=== PATIENT | female | born 1990 | race Caucasian/White ===

== ENCOUNTER 2022-06-14 07:31 | Outpatient (REF) | payer OTHER, SELFPAY ==
[2022-06-14 11:35] LABS: Hematocrit 38.5 % (37.0-47.0); Hemoglobin 13.1 g/dl (12.0-16.0); Mean Corpuscular Hemoglobin 29.8 pg (27.0-33.0); Mean Corpuscular Volume 87.5 fL (80.0-98.0); Mean Platelet Volume 10.7 fL (9.4-12.3); Platelet Count 256 X10*3/uL (160-400); Red Cell Distribution Width 12.8 % (11.0-16.0); White Blood Count 4.4 X10*3/uL (4.8-10.8)
[2022-06-14 12:24] LABS: TSH reflex Free T4 1.71 uIU/mL (0.32-4.0)
[2022-06-14 12:28] LABS: Alanine Aminotransferase 17 U/L (0-31); Albumin Level 4.3 g/dL (3.5-5.0); Alkaline Phosphatase 47 U/L (39-117); Anion Gap 14 (12-20); Aspartate Amino Transferase 15 U/L (5-31); Bilirubin Total 0.5 mg/dL (0.0-1.0); Blood Urea Nitrogen 14 mg/dL (9-16); Calcium 9.1 mg/dL (8.4-10.2); Carbon Dioxide 25 mmol/L (22-29); Chloride 106 mmol/L (96-108); Cholesterol 179 mg/dL; Estimated Glomerular Filt Rate > 60; Glucose Fasting 94 mg/dL (60-99); HDL Cholesterol 59 mg/dL; LDL Cholesterol Calculated 106 mg/dl; Potassium 4.2 mmol/L (3.3-5.1); Sodium 141 mmol/L (135-145); Total Protein 6.7 g/dL (6.5-8.0); Triglycerides 72 mg/dL
== END 2022-06-14 07:32 | disposition home or self-care (01) ==
LOC: HO.WFDLDS 07:31
PROVIDERS: Visit Provider Hospitalist
DX: Z00.00 Encounter for general adult medical examination without abnormal findings (principal)
CPT/HCPCS: 36415; 80053; 80061; 84443; 85027

== ENCOUNTER → 2023-02-10 08:33 | Outpatient (BNVA) | payer OTHER, SELFPAY | PROVIDERS: PCP Hospitalist; Visit Provider Nurse Practitioner Family | DX: G43.109 Migraine with aura, not intractable, without status migrainosus (principal); R51.9 Headache, unspecified | CPT/HCPCS: 99202 ==

== ENCOUNTER 2023-03-21 08:48 | Outpatient (REF) | payer OTHER, SELFPAY ==
--- NOTE | ~2023-03-21 | MR_ITS ---
EXAMINATION: MR BRAIN WITHOUT CONTRAST CLINICAL INFORMATION: Migraine. COMPARISON: None available. TECHNIQUE: MRI of the brain was obtained using routine sequences without contrast. FINDINGS: No focal restricted diffusion is demonstrated to suggest acute or subacute cerebral ischemia. No evidence of acute or chronic hemorrhagic products on heme-sensitive imaging. Few nonspecific scattered periventricular and deep white matter T2 FLAIR hyperintensities. No additional parenchymal signal abnormalities. The ventricles are normal in morphology and size. No abnormal mass effect. No midline shift. Normal appearance of the pituitary gland. Normal positioning of the cerebellar tonsils. Normal arterial and venous vascular flow voids are present. Normal, homogeneous marrow signal. Mild mucosal thickening of the paranasal sinuses. No signal abnormalities within the mastoids. MR/MR head/brain wo con IMPRESSION: 1. No acute intracranial abnormalities. 2. Minimal nonspecific white matter changes.
== END 2023-03-21 08:49 | disposition home or self-care (01) ==
LOC: HO.MRI 08:48
PROVIDERS: PCP Hospitalist; Visit Provider Nurse Practitioner Family
DX: G43.109 Migraine with aura, not intractable, without status migrainosus (principal)
CPT/HCPCS: 70551

== ENCOUNTER 2023-08-19 13:08 | Outpatient (AMB) | payer OTHER, SELFPAY ==
--- NOTE | 2023-08-19 13:09 | MHC.OFFVIS ---
Intake Vital Signs 08/19/23 13:10 Height 5 ft 8 in Weight 211 lb BMI 32.1 BP 126/74 Blood Pressure Location Rt brachial Position Sitting Pulse 86 Pulse Source Pulse Oximeter Pulse Oximetry (%) 97 Oxygen Delivery Method Room Air Intake Visit Reasons: 3 month follow up -confirmed Intake Note: Patient presents for 3 month follow up. Patient states this is actually a 6 month migraine follow up last migraine I had was May. Allergies grass pollen Allergy (Unknown, Verified 08/19/23 13:13) Unknown sumatriptan Adverse Reaction (Mild, Verified 08/19/23 13:13) Unknown mold Allergy (Unknown, Uncoded 08/19/23 13:13) Unknown HPI HPI Comments History of Present Illness Details 33-yr-old female presents for f/u visit. Pt denies any significant interval medical changes. Pt reports she has had 2 severe migraines since February, which last 2 days. She was more photophobic. She has had 2-3 lower grade migraines per week- may respond to fluids, Ibuprofen. One of the attacks, she had increased stress and was exposed to neon light. She did take a Ubrelvy- afterwards she felt a high energy/manic feeling- this was atypical for her. The following day, she still had headache, and was quite tired- slept for most of the day. The other attack she was exposed to a high light exposure. She did have eye pain and visual aura, and thumb to pinky numbness. She did not take the Ubrelvy on her at onset, so did not take it until later in the attack. She did not have positive or negative change after taking the Ubrelvy. Brain MRI- No acute findings. Mild non-specific T2 hyperintensity white matter changes. PFSH Family History Father Hypertension Mother Breast cancer Social History Housing: House Alcohol intake: current Alcohol intake frequency: a few times a week Patient Tobacco Use Status: Never used Tobacco Tobacco use type: Cigarette e-Cigarette/Vaping Use: Never Used Second Hand Smoke Exposure: No service: No Current occupational status: employed Review of Systems Const All systems reviewed & are unremarkable except as noted in HPI and below Physical Exam Vital Signs: Last Vital Signs Pulse 86 08/19/23 13:10 BP 126/74 08/19/23 13:10 Pulse Ox 97 08/19/23 13:10 Oxygen Delivery Method Room Air 08/19/23 13:10 BMI result Body Mass Index 32.1 Const General: cooperative and no acute distress Orientation/consciousness: patient oriented x3 HEENT Head: Yes normocephalic Resp Effort & Inspection: normal respiratory effort and able to speak in complete sentences Neuro General: patient oriented x3, gait normal and CN's II-XI intact bilaterally Cognition (Neuro): normal cognition Motor exam (neuro): 5/5 motor strength present throughout Psych Appearance: grossly normal Mental Status: mental status grossly normal Speech and movement: Normal speech and movement present Affect: normal affect Attitude: cooperative Thought process: Normal thought process present Thought content: Normal thought content present Insight: Good insight present (Psych) Judgement: Good judgement present (Psych) Assessment & Plan Assessment & Plan (1) Migraine with aura: Code(s): G43.109 - Migraine with aura, not intractable, without status migrainosus (2) Migraine without aura: Code(s): G43.009 - Migraine without aura, not intractable, without status migrainosus Plan Reviewed brain MRI report and images w/ pt- no findings to account for pt's s/s, 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 ? For overall headache management: Continue to optimize good self-care, including but not limited to maintaining a healthy diet, adequate fluid intake, adequate sleep, and engaging in regular physical activity. Track headaches. Continue light sensitivity tips: blue light filtering glasses. ? For acute migraine treatment: Continue Ubrelvy 100mg tab, 1/2 - 1 tab (50-100mg) at onset of headache, may repeat in 2 hours. Max of 2 tabs (200mg) per 24 hours. May adjunct with OTC Tylenol 650mg q 4 hours, Ibuprofen 600mg q 6 hours, or Naproxen 440mg q 12 hrs prn. Previous acute migraine medication trials: Sumatriptan- caused severe vasospasm. Fioricet ineffective. Acute migraine medication contraindications: All triptans. ? For migraine prevention medication: Continue OTC Riboflavin 400mg qam Continue OTC Magnesium up to 500mg qhs Continue OTC Feverfew Previous migraine prevention medication trials: None Migraine prevention medication contraindications: BBs d/t asthma ? f/u in 6 months or sooner prn. Coding Level of Care Code Est Pt Level 4 (72768) Diagnoses Migraine with aura G43.109 Migraine without aura G43.009
[2023-08-19 13:10] VITALS: BP 126/74; PULSE 86; O2SAT 97; BMI 32.1
== END 2023-08-19 13:54 | disposition home or self-care (01) ==
LOC: HO.HSMS 13:08
PROVIDERS: PCP Hospitalist; Visit Provider Nurse Practitioner Family
DX: G43.109 Migraine with aura, not intractable, without status migrainosus (principal); G43.009 Migraine without aura, not intractable, without status migrainosus
CPT/HCPCS: 99214

== ENCOUNTER → 2023-08-19 13:08 | Outpatient (BNVA) | payer OTHER, SELFPAY | PROVIDERS: PCP Hospitalist; Visit Provider Nurse Practitioner Family | DX: G43.109 Migraine with aura, not intractable, without status migrainosus (principal); G43.009 Migraine without aura, not intractable, without status migrainosus | CPT/HCPCS: 99212 ==

== ENCOUNTER 2024-02-17 09:38 | Outpatient (AMB) | payer OTHER, SELFPAY ==
--- NOTE | 2024-02-17 09:43 | MHC.OFFVIS ---
Vital Signs 02/17/24 09:48 Height 5 ft 8 in Weight 208 lb 6 oz BMI 31.7 BP 124/72 Blood Pressure Location Lt brachial Position Sitting Pulse 80 Pulse Source Pulse Oximeter Pulse Oximetry (%) 97 Oxygen Delivery Method Room Air Intake Visit Reasons: 6 mnts f/u appt/ LVM w/address Intake Note: Patient presents for 6 months f/u. Migraines are much better. Get them less frequently. Allergies grass pollen Allergy (Unknown, Verified 02/17/24 09:48) Unknown sumatriptan Adverse Reaction (Mild, Verified 02/17/24 09:48) Unknown mold Allergy (Unknown, Uncoded 08/19/23 13:13) Unknown Medication List - Last Reconciled 02/17/24 by MANOJ Randolph cyclobenzaprine 10 mg PO TID PRN electrolytes, oral PO feverfew 1,500 mg PO DAILY glucosamine sulfate (Glucosamine) PO magnesium citrate 330 mg PO DAILY meloxicam 15 mg PO DAILY multivitamin 1 tab PO DAILY ondansetron HCl 8 mg PO Q8H PRN [tumeric and allyson 550 mg PO DAILY] ubrogepant (Ubrelvy) 50 - 100 mg (0.5 - 1 x 100 mg) PO ONCE PRN 30 days HPI Comments Details: 33-yr-old female presents for f/u visit. Pt denies any significant interval medical changes. Pt reports she has not had a severe migraine since her last visit here. She has had the onset of migraine, which has resolved with her as needed med, though still has a postdrome of a day of fatigue. Needing to use this approx 1-2 month. Her migraine now starts with blurry vision, photophobia, thirst. She may still feel tired. Has not had visual aura or agitation a/w her migraine attacks. May have a milder stabbing upper left eye headache a/w photophobia, pain on eye movement, anorexia, wants to be still. This lasts until she takes something. Ubrelvy is helpful for this as well. She has a few of these headaches per month. Now taking an electrolyte drink that contains Magnesium qhs- Noom. No longer seeing eye twitch. She uses a Magnesium salve on her feet. She has stopped the feverfew. Rarely using Cyclobenzaprine. Baseline migraine headache characteristics: 05/22, Behind her eyes and top of head. Dull constant pain. A/w eye twitch, photophobia, phonophobia, irritability f/b losing central and peripheral vision (this lasts 15-30min), fatigue, brain fog- difficulty getting the word out. Has once had RUE numbness/tingling. Has had speech difficulties- the words did not make sense, jibberish- notes she is unable to write or type during this episode. PFSH Family History Father Hypertension Mother Breast cancer Social History Housing: House Alcohol intake: current Alcohol intake frequency: a few times a week Patient Tobacco Use Status: Never used Tobacco Tobacco use type: Cigarette e-Cigarette/Vaping Use: Never Used Second Hand Smoke Exposure: No service: No Current occupational status: employed Physical Exam Vital Signs: Last Vital Signs Pulse 80 02/17/24 09:48 BP 124/72 02/17/24 09:48 Pulse Ox 97 02/17/24 09:48 Oxygen Delivery Method Room Air 02/17/24 09:48 BMI result Body Mass Index 31.7 Const General: cooperative and no acute distress Orientation/consciousness: patient oriented x3 Resp Effort & Inspection: normal respiratory effort and able to speak in complete sentences Neuro General: patient oriented x3 Cranial nerves: Yes CN's II-XII intact bilaterally Cognition (Neuro): normal cognition Psych Appearance: grossly normal Mental Status: mental status grossly normal Speech and movement: Normal speech and movement present Affect: normal affect Attitude: cooperative Assessment & Plan Assessment & Plan (1) Migraine without aura: Code(s): G43.009 - Migraine without aura, not intractable, without status migrainosus Category: Medical (2) Migraine with aura: Code(s): G43.109 - Migraine with aura, not intractable, without status migrainosus Category: Medical Plan Monitor eye twitch. Improved on Noom electrolyte supplement. ? For overall headache management: Continue to optimize good self-care, including but not limited to maintaining a healthy diet, adequate fluid intake, adequate sleep, and engaging in regular physical activity. Track headaches. Continue light sensitivity tips: blue light filtering glasses. ? For acute migraine treatment: Continue Ubrelvy 100mg tab, 1/2 - 1 tab (50-100mg) at onset of headache, may repeat in 2 hours. Max of 2 tabs (200mg) per 24 hours. May adjunct with OTC Tylenol 650mg q 4 hours, Ibuprofen 600mg q 6 hours, or Naproxen 440mg q 12 hrs prn. Cyclobenzaprine prn. Previous acute migraine medication trials: Sumatriptan- caused severe vasospasm. Fioricet ineffective. Acute migraine medication contraindications: All triptans. ? For migraine prevention medication: OTC Riboflavin 400mg qam OTC Magnesium up to 500mg qhs May hold OTC Feverfew Previous migraine prevention medication trials: None Migraine prevention medication contraindications: BBs d/t asthma ? f/u in 6 months or sooner prn. Medications: Discontinued diazepam (Valium) Discontinued Reason: Patient Completed Course 5 mg PO BEDTIME 5 tabs 0RF sleep R51.9 - Headache, unspecified Coding Level of Care Code Est Pt Level 4 (71861) Diagnoses Migraine without aura G43.009 Migraine with aura G43.109
[2024-02-17 09:48] VITALS: BP 124/72; PULSE 80; O2SAT 97; BMI 31.7
== END 2024-02-17 10:32 | disposition home or self-care (01) ==
PROVIDERS: PCP Hospitalist; Visit Provider Nurse Practitioner Family
DX: G43.009 Migraine without aura, not intractable, without status migrainosus (principal); G43.109 Migraine with aura, not intractable, without status migrainosus
CPT/HCPCS: 99214

== ENCOUNTER → 2024-02-17 09:38 | Outpatient (BNVA) | payer OTHER, SELFPAY | PROVIDERS: PCP Hospitalist; Visit Provider Nurse Practitioner Family | DX: G43.109 Migraine with aura, not intractable, without status migrainosus (principal) | CPT/HCPCS: 99212 ==

== ENCOUNTER 2024-09-02 09:31 | Outpatient (AMB) | payer OTHER, SELFPAY ==
[2024-09-02 09:36] VITALS: BP 112/74; PULSE 82; O2SAT 98; BMI 31.8
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
[2024-09-02 11:48] VITALS: BMI 31.8
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
== END 2024-09-02 10:40 | disposition home or self-care (01) ==
PROVIDERS: PCP Hospitalist; Visit Provider Nurse Practitioner Family
DX: G43.009 Migraine without aura, not intractable, without status migrainosus (principal); G43.109 Migraine with aura, not intractable, without status migrainosus
CPT/HCPCS: 99214

== ENCOUNTER → 2024-09-02 09:31 | Outpatient (BNVA) | payer OTHER, SELFPAY | PROVIDERS: PCP Hospitalist; Visit Provider Nurse Practitioner Family | DX: G43.109 Migraine with aura, not intractable, without status migrainosus (principal) | CPT/HCPCS: 99212 ==

== ENCOUNTER 2025-03-01 09:24 | Outpatient (AMB) | payer OTHER, SELFPAY ==
--- NOTE | 2025-03-01 09:32 | MHC.OFFVIS ---
Vital Signs 03/01/25 09:33 Height 5 ft 8 in Weight 208 lb BMI 31.6 BP 118/78 Blood Pressure Location Rt brachial Position Sitting Pulse 86 Pulse Source Pulse Oximeter Pulse Oximetry (%) 98 Oxygen Delivery Method Room Air Intake Visit Reasons: 6 mo f/u Intake Note: Patient presents 6 month follow up for Migraines. Antichecking Iron Worker Required: No Accompanied by: Self / Same As Patient Allergies grass pollen Allergy (Unknown, Verified 03/01/25 09:33) Unknown sumatriptan Adverse Reaction (Mild, Verified 03/01/25 09:33) Unknown mold Allergy (Unknown, Uncoded 08/19/23 13:13) Unknown Medication List - Last Reconciled 03/01/25 by MANOJ Randolph cyclobenzaprine 10 mg PO TID PRN electrolytes, oral PO glucosamine sulfate (Glucosamine) PO magnesium citrate 330 mg PO DAILY meloxicam 15 mg PO DAILY multivitamin 1 tab PO DAILY ondansetron HCl 8 mg PO Q8H PRN [tumeric and allyson 550 mg PO DAILY] ubrogepant (Ubrelvy) 50 - 100 mg (0.5 - 1 x 100 mg) PO ONCE PRN 30 days HPI Comments Details: 34-yr-old female presents for f/u visit of migraine. Pt denies any significant interval medical changes. Overall, she is doing well. She he has not had a full-blown migraine since her last visit. She continues to have a regular headache- stabbing pain above the right eye, which can be associated with light and sound sensitivity.. Treats with Tyelnol and if ineffective, takes a Ubrelvy which is effective. She is still sensitive to light, where consistent light exposure, can trigger phonophobia, nausea, feels overwhelmed. Eyes may bother her, but no headache. She will have bilateral facial discomfort if working on her computer w/o her blue- light glasses. She is sleeping better- since her older dog . She is exercising more w/ a friend- doing 10,000 steps a day, and weight training 3 days a week. Seeing a chiropractor bi-weekly. No longer seeing eye twitch. Continues to take electrolyte drinks 1-2 x's per day, B2, co-q10, glucosamine. She uses a Magnesium salve on her feet. Baseline migraine headache characteristics: 05/22, Behind her eyes and top of head. Dull constant pain. A/w eye twitch, blurry vision, photophobia, phonophobia, irritability f/b losing central and peripheral vision (this lasts 15-30min), fatigue, brain fog- difficulty getting the word out. Has once had RUE numbness/tingling. Has had speech difficulties- the words did not make sense, jibberish- notes she is unable to write or type during this episode. PFSH Family History Father Hypertension Mother Breast cancer Social History Housing: House Alcohol intake: current Alcohol intake frequency: a few times a week Patient Tobacco Use Status: Never used Tobacco Tobacco use type: Cigarette e-Cigarette/Vaping Use: Never Used Second Hand Smoke Exposure: No service: No Current occupational status: employed Physical Exam Vital Signs: Last Vital Signs Pulse 86 03/01/25 09:33 BP 118/78 03/01/25 09:33 Pulse Ox 98 03/01/25 09:33 Oxygen Delivery Method Room Air 03/01/25 09:33 BMI result Body Mass Index 31.6 Const General: cooperative and no acute distress Orientation/consciousness: patient oriented x3 Resp Effort & Inspection: normal respiratory effort and able to speak in complete sentences Neuro General: patient oriented x3 Cranial nerves: Yes CN's II-XII intact bilaterally Cognition (Neuro): normal cognition Psych Appearance: grossly normal Mental Status: mental status grossly normal Speech and movement: Normal speech and movement present Affect: normal affect Attitude: cooperative Assessment & Plan Assessment & Plan (1) Migraine without aura: Code(s): G43.009 - Migraine without aura, not intractable, without status migrainosus Category: Medical Qualifiers: Intractability: not intractable Status migrainosus presence: without status migrainosus Qualified Code(s): G43.009 - Migraine without aura, not intractable, without status migrainosus (2) Migraine with aura: Code(s): G43.109 - Migraine with aura, not intractable, without status migrainosus Category: Medical Qualifiers: Intractability: not intractable Status migrainosus presence: without status migrainosus Qualified Code(s): G43.109 - Migraine with aura, not intractable, without status migrainosus (3) Eye twitch: Code(s): G24.5 - Blepharospasm Category: Medical Plan Her eye twitch: Improved on Noom electrolyte supplement 1-2 times per day. Continue to monitor ? For overall headache management: Continue to optimize good self-care, including but not limited to maintaining a healthy diet, adequate fluid intake, adequate sleep, and engaging in regular physical activity. Track headaches. Track visual aura w/o headache s/s. Continue light sensitivity tips: blue light filtering glasses. Concur with increasing regular physical activity. ? For acute migraine treatment: Advised to try to take Ubrelvy at onset of her full regular info headache, as this is likely [id number] migraine. Continue Ubrelvy 100mg tab, 1/2 - 1 tab (50-100mg) at onset of migraine headache, may repeat in 2 hours. Max of 2 tabs (200mg) per 24 hours. May adjunct with OTC Tylenol 650mg q 4 hours, Ibuprofen 600mg q 6 hours, or Naproxen 440mg q 12 hrs prn. Pt previously stopped prn cyclobenzaprine.. Previous acute migraine medication trials: Sumatriptan- caused severe vasospasm. Fioricet ineffective. Acute migraine medication contraindications: All triptans d/t sumatriptan caused severe vasospasm.. Future considerations- Acetazolamide trial for air travel or travel to higher altitudes. For migraine prevention medication: OTC Riboflavin 400mg qam OTC Magnesium up to 500mg qhs We continue magnesium so application. May hold OTC Feverfew Previous migraine prevention medication trials: None Migraine prevention medication contraindications: BBs d/t asthma Future considerations: C0-Q 10. ? f/u in 6 months or sooner prn. Coding Level of Care Code Est Pt Level 4 (97970) Diagnoses Migraine without aura and without status migrainosus, not intractable G43.009 Intractability: not intractable Status migrainosus presence: without status migrainosus Migraine with aura and without status migrainosus, not intractable G43.109 Intractability: not intractable Status migrainosus presence: without status migrainosus Eye twitch G24.5
[2025-03-01 09:33] VITALS: BP 118/78; PULSE 86; O2SAT 98; BMI 31.6
--- OUTSIDE RECORDS SUMMARY | 2025-03-01 10:13 | XMS_ITS | Clinical Summary ---
Author Organization [facility] Address [address] [place] [address] Phone Care Team Providers Care Architectural Practice Manager Name Role Phone Faustino Souza MD Primary Care Provider Allergies Active Allergy Reactions Criticality Noted Date Comments Cat Dander 10/25/2013 Mold 10/25/2013 Sumatriptan Headache,Nausea And Vomiting 11/03/2014 Other Reaction(s): OTHER Unable to speak Medications ubrogepant (UBRELVY) 100 mg tablet Take by mouth. Activ e copper (PARAGARD) 380 square mm IUD 1 Device by Intrauterine route Once. Active Active Problems Problem Noted Date Diagnosed Date Migraine with aura 11/03/2014 Surgical History Surgery Date Site/Laterality Comments OTHER SURGICAL HISTORY PROCEDURE: DENIES PREVIOUS SURGERY Medical History Medical History Date Comments Body piercing DX:Body piercing ; COMMENT: L-nipple, navel, Family History Medical History Relation Name Comments Hyperlipidemia Father Diabetes Father's side 1 Breast cancer Father's side 2 aunt Liver cancer Maternal Grandmother Breast cancer Mother Colon cancer Paternal Grandmother Lung cancer Paternal Grandmother Relation Name Status Comments Brother Alive Father Alive Father's side 1 Father's side 2 Father's side 3 Maternal Grandmother Mother Alive Paternal Grandmother Social History Tobacco Use Types Packs/Day Years Used Date Smoking Tobacco: Never Smokeless Tobacco: Never Tobacco Cessation:Counseling Given: Not Answered Alcohol Use Standard Drinks/Week Comments Yes 0 (1 standard drink = 0.6 oz pur e alcohol) socially Housing Instability Answer Date Recorde d Are you worried that in the next 2 months you may not have stable housing? No 10/02/2024 Food Access & Nutrition Answer Date Rec orded Do you have access to a vari ety of food including fruits and vegetables? Yes 10/02/2024 Access to Healthcare Answer Date Record ed Within the last 3 months, ho w many times did you visit the emergency department for your medical care? 0 10/02/2024 Health Literacy Answer Date Recorded How often do you need to hav e someone help you when you read instructions, pamphlets, or other written material from your doctor or pharmacy? Never 10/02/2024 Caregiver: How often do you need to have someone help you when you read instructions, pamphlets, or other written material from your doctor or pharmacy? Not on file 10/02/2024 Financial Risk Answer Date Recorded How hard is it for you to pa y for the very basics like food, housing, medical care, and air conditioning / heating? Not very hard 10/02/2024 Transportation Answer Date Recorded Has the lack of transportati on kept you from meetings, work, or from getting things needed for daily living? No Has the lack of transportati on kept you from medical appointments or from getting medications? No 10/02/2024 Social Isolation Answer Date Recorded How often do you feel lonely or isolated from th ose around you? Rarely 10/02/2024 Food Risk Answer Date Recorded Within the past 12 months we worried whether our food would run out before we got money to buy more. Never true 10/02/2024 Within the past 12 months th e food we bought just didn't last and we didn't have money to get more. Never true 10/02/2024 Dependent Care Answer Date Recorded Do you need help finding or paying for care for your loved ones. For example, early childhood special educator or elderly care for an older adult? No 10/02/2024 Education Answer Date Recorded Do you think completing more education or training, like finishing a GED, going to college, or learning a trade, would be helpful for you? No 10/02/2024 Employment and Income Answer Date Recor ded During the last four weeks, have you been actively looking for work? No 10/02/2024 Living Situation Answer Date Recorded What is your living situation? 1 12/03/2023 Comments No Sex and Gender Information Value Date Recorded Sex Assigned at Female 10/02/2024 8:19 AM EST Legal Sex Female 5:48 AM EST Gender Identity Female 10/02/2024 8:19 AM EST Sexual Orientation Straight 10/02/2024 8: 19 AM EST Obstetrics History Para Term AB IAB SAB Ectopic Multiple Livin g Live Births 0 0 0 0 0 0 0 0 0 0 0 Last Filed Vital Signs Vital Sign Reading Time Taken Comments Blood Pressure 114/88 10/08/2024 8:47 AM EST Pulse 88 10/08/2024 8:47 AM EST Temperature - - Respiratory Rate - - Oxygen Saturation - - Inhaled Oxygen Concentration - - Weight 95.5 kg (210 lb 8 oz) 10/08/2024 8:47 AM EST Height 172.7 cm (5' 8 ) 10/08/2024 8:47 AM EST Body Mass Index 32.01 10/08/2024 8:47 AM EST Plan of Treatment Health Maintenance Due Date Last Done Comments DTaP,Tdap,and Td Vaccines (1 - Tdap) 2007 Hepatitis B Vaccines (1 of 3 - 19+ 3-dose series) 2007 COVID-19 Vaccine ( - 2023-2 5 season) 2024 Influenza Vaccine (Season Ended) 2025 Depression Screening 10/02/2025 10/02/2024 Social Influencers of Health Screening 10/02/2025 10/02/2024 Cervical Cancer Screening: HPV 06/24/2027 06/24/2022 HIV Screening Completed 10/16/2012 Hepatitis C Screening Completed 10/16/2012 HIB Vaccines Aged Out No longer eligi ble based on patient's age to complete this topic HPV Vaccines Aged Out No longer eligi ble based on patient's age to complete this topic Hepatitis A Vaccines Aged Out No long er eligible based on patient's age to complete this topic IPV Vaccines Aged Out No longer eligi ble based on patient's age to complete this topic MMR Vaccines Aged Out No longer eligi ble based on patient's age to complete this topic Meningococcal ACWY Vaccine Aged Out N o longer eligible based on patient's age to complete this topic Meningococcal B Vaccine Aged Out No l onger eligible based on patient's age to complete this topic Pneumococcal Vaccine: Pediat rics (0 to 5 Years) and At-Risk Patients (6 to 64 Years) Aged Out No longer eligi ble based on patient's age to complete this topic RSV Immunization Patients Un shekhar 20 months Aged Out No longer eligible b ased on patient's age to complete this topic Varicella Vaccines Aged Out No longer eligible based on patient's age to complete this topic Procedures Procedure Name Priority Date/Time Associated Diagnosis Comments HPV Routine 06/24/2022 HEPATITIS C SCREENING Routine 10/16/2012 HIV SCREENING Routine 10/16/2012 from Last 3 Months or Most Recently Relevant to Health Maintenance Results * Cervical Cancer Screening: HPV (06/24/2022) Cervical Cancer Screening: HPV abstracted, negative [facility] Provider HEALTH MAINTENANCE Final Result * HIV Screening (10/16/2012) Pathologist [facility] HIV Screening abstracted [facility] Provider HEALTH MAINTENANCE Final Result * Hepatitis C Screening (10/16/2012) Pathologist [facility] Hepatitis C Screening abstracted [facility] Provider HEALTH MAINTENANCE Final Result from Last 3 Months or Most Recently Relevant to Health Maintenance Insurance [facility] PUBLIC PL[facility] Care Teams Architectural Practice Manager Relationship Specialty Start Date End Date Faustino Souza MD [address] [place] [id number] PCP - General Family Medicine 10/21/24
--- OUTSIDE RECORDS SUMMARY | 2025-03-01 10:13 | XMS_ITS | Data Portability ---
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 Discussed potential triggers.? ? ?Greater than 50% of time spent counseling patient re comprehensive review of prognosis/plan/r isks and benefits of current treatment. Office visit was 30 minutes and patient counseled re: management of migraine. [email or web address] Not available 09/02/2014 10:55:13 11/07/2014 11/07/2014 Reviewed recent symptoms. Unclear to me if neurologic symptoms are result of migraine syndrome or medication side effect. Will avoid triptans for now. Neuro consult recommended.? ? ? Greater than 50% of time spent counseling patient re comprehensive review of prognosis/plan/r isks and benefits of current treatment. Office visit was 20 minutes and patient counseled re: management of migraine. phelmuth Not available 11/07/2014 11:28:03 11/21/2015 11/21/2015 Appears to have had mild SI strain, now improving. Exam is unrevealing and pain is improved. Advised that she may slowly increase her exercise.? ? ? phelmuth Not available 11/21/2015 10:42:36 11/05/2019 11/05/2019 Doing well. Notes intermittent migraine with aura. Decreased in frequency. phelmuth Not available 11/05/2019 12:08:25 Plan of Treatment Reminders Order Date Submit Date Provider Last Modified By Organization Details Last Modified Time Details Appointments None record ed. Lab lipid panel, serum 2019 020 [email or web address] [facility], [address], [place], [address], 0 12:11:01 BMP, serum or plasma 2019 020 bsolivanmattos [facility], [address], [place], [address], 0 12:11:01 CBC w/ auto diff 2019 020 bsolivanmattos [facility], [address], [place], [address], 0 12:11:01 TSH, serum or plasma 2019 020 [email or web address] [facility], [address], [place], [address], 0 11:56:32 lipid panel, serum 2016 017 bsolivanmattos [facility], [address], [place], [address], 8 15:17:10 BMP, serum or plasma 2016 017 bsolivanmattos [facility], [address], [place], [address], 8 15:17:10 CBC w/ auto diff 2016 017 bsolivanmattos [facility], [address], [place], [address], 8 15:17:11 CBC w/ auto diff 2013 014 JAIMEE Not available 4 14:59:09 TSH, serum or plasma 2013 014 JAIMEE Not available 4 15:53:07 BMP, serum or plasma 2013 014 JAIMEE Not available 4 15:49:07 [facility]erral breast [facility] 2016 0[facility], [address], [facility] [address], [address], 7 15:24:29 nutrit ionist /dieti gonzalo referr al 2016 017 ljernigan Not available 7 14:28:42 ophtha lmolog ist referr al 2014 015 adonay Atkins MD, [address] [place], [address], 5 08:12:32 neurol ogist referr al 2014 015 yunior [facility], [address] [facility], [facility] [address], [place], [address], 5 08:39:16 Procedures None record ed. Surgeries None record ed. Imaging None record ed. Medication Orders sumatr iptan 100 mg tablet 2013 014 abigailidjuan [id number], [address] [place], [address], 6 10:02:04 Patient TargetsNo targets recorded. Patient Instructions Encounter Date Encounter Id Patient Instructions Last Modified By Organization Details Last Modified Time 09/02/2014 [id number] migraine aura without a headache: care instructions [email or web address] Not available 09/02/2014 10:55:12 11/07/2014 [id number] headache: care instructions Not available 11/07/2014 11:29:59 migraine aura without a headache: care instructions [email or web address] Not available 11/07/2014 11:29:58 Medications were reviewed at this visit and reconciled. Changes in the active medications are reflected in the current medication list and discussed with patient (or caregiver) with instructions for follow up as needed. Printed medication list provided to the patient as part of the visit summary. phelmuth Not available 11/07/2014 11:28:10 11/21/2015 [id number] sacroiliac pain: exercises phelmuth Not available 11/21/2015 13:08:22 05/29/2017 [id number] When You Want to Lose Weight: Care Instructions ckry Not available 05/30/2017 15:05:48 Nutrition Referral and Weight Management Follow-up Information ckry Not available 05/30/2017 15:05:48 11/05/2019 [id number] migraine aura without a headache: care instructions [facility] Not available 11/05/2019 12:08:54 Reason for Referral [employer] Referral for Headache Referring Physician: Will Malin, Internal Medicine, Encounter Date: 11/07/2014 Neurologist Referral for Jarrett gottlieb with aura Referring Physician: Will Malin Internal Medicine, Encounter Date: 11/07/2014 Breast Center Referral for F amily history of breast cancer Referring Physician: Will Malin Internal Medicine, Encounter Date: 05/29/2017 Carton Packaging Machine Operator/dietitian Refer ral for Body mass index 25-29 - overweight Referring Physician: Will Malin Internal Medicine, Encounter Date: 05/29/2017 Results Created Date Observation Date Name Description Value Unit Range Abnormal Flag Note LastModifiedBy Organization Detail LastModifiedTime 09/02/20 14 09/02/2014 CBC w/ auto diff WBC 4.8 K/mm3 (4.0-1 1.0) Not Available [facility] (Centralized Electronic Ordering - All Locations) Patient Can Go To The Location Of Their Choice, [id number] 09/02/2014 14:59:09 09/02/20 14 09/02/2014 CBC w/ auto diff RBC 4.63 M/mm3 (4.20- 5.40) Not Available [facility] (Centralized Electronic Ordering - All Locations) Patient Can Go To The Location Of Their Choice, [id number] 09/02/2014 14:59:09 09/02/20 14 09/02/2014 CBC w/ auto diff HGB 14.0 gm/dL (12.0- 16.0) Not Available [facility] (Centralized Electronic Ordering - All Locations) Patient Can Go To The Location Of Their Choice, 09/02/2014 14:59:09 09/02/20 14 09/02/2014 CBC w/ auto diff HCT 40.6 % (37.0- 47.0) Not Available [facility] (Centralized Electronic Ordering - All Locations) Patient Can Go To The Location Of Their Choice, 09/02/2014 14:59:09 09/02/20 14 09/02/2014 CBC w/ auto diff MCV 87.7 fL (80.0- 100.0) Not Available [facility] (Centralized Electronic Ordering - All Locations) Patient Can Go To The Location Of Their Choice, 09/02/2014 14:59:09 09/02/20 14 09/02/2014 CBC w/ auto diff MCH 30.2 pg (27.0- 34.0) Not Available [facility] (Centralized Electronic Ordering - All Locations) Patient Can Go To The Location Of Their Choice, 09/02/2014 14:59:09 09/02/20 14 09/02/2014 CBC w/ auto diff MCHC 34.5 % (33.0- 37.0) Not Available [facility] (Centralized Electronic Ordering - All Locations) Patient Can Go To The Location Of Their Choice, 09/02/2014 14:59:09 09/02/20 14 09/02/2014 CBC w/ auto diff plt 254 K/mm3 (150-4 60) Not Available [facility] (Centralized Electronic Ordering - All Locations) Patient Can Go To The Location Of Their Choice, 09/02/2014 14:59:09 09/02/20 14 09/02/2014 CBC w/ auto diff RDW-SD 41.4 fL (<47.0 ) Not Available [facility] (Centralized Electronic Ordering - All Locations) Patient Can Go To The Location Of Their Choice, 09/02/2014 14:59:09 09/02/20 14 09/02/2014 CBC w/ auto diff MPV 10.4 fL (9.4-1 2.4) Not Available [facility] (Centralized Electronic Ordering - All Locations) Patient Can Go To The Location Of Their Choice, 09/02/2014 14:59:09 09/02/20 14 09/02/2014 CBC w/ auto diff automated NRBC 0.0 #/100 _WBC' s Not Available [facility] (Centralized Electronic Ordering - All Locations) Patient Can Go To The Location Of Their Choice, 09/02/2014 14:59:09 09/02/20 14 09/02/2014 CBC w/ auto diff abs. NRBC 0.0 K/mm3 Not Available [facility] (Centralized Electronic Ordering - All Locations) Patient Can Go To The Location Of Their Choice, 09/02/2014 14:59:09 09/02/20 14 09/02/2014 CBC w/ auto diff neut # 2.4 K/mm3 (1.3-7 .0) Not Available [facility] (Centralized Electronic Ordering - All Locations) Patient Can Go To The Location Of Their Choice, 09/02/2014 14:59:09 09/02/20 14 09/02/2014 CBC w/ auto diff lymph # 1.8 K/mm3 (0.8-3 .1) Not Available [facility] (Centralized Electronic Ordering - All Locations) Patient Can Go To The Location Of Their Choice, 09/02/2014 14:59:09 09/02/20 14 09/02/2014 CBC w/ auto diff mono# 0.5 K/mm3 (0.4-0 .9) Not Available [facility] (Centralized Electronic Ordering - All Locations) Patient Can Go To The Location Of Their Choice, 09/02/2014 14:59:09 09/02/20 14 09/02/2014 CBC w/ auto diff eo # 0.1 K/mm3 (0.0-0 .4) Not Available [facility] (Centralized Electronic Ordering - All Locations) Patient Can Go To The Location Of Their Choice, 09/02/2014 14:59:09 09/02/20 14 09/02/2014 CBC w/ auto diff baso # 0.0 K/mm3 (0.0-0 .1) Not Available [facility] (Centralized Electronic Ordering - All Locations) Patient Can Go To The Location Of Their Choice, 09/02/2014 14:59:09 09/02/20 14 09/02/2014 CBC w/ auto diff abs. imm gran 0.0 K/mm3 Not Available [facility] (Centralized Electronic Ordering - All Locations) Patient Can Go To The Location Of Their Choice, 09/02/2014 14:59:09 09/02/20 14 09/02/2014 CBC w/ auto diff neut 50.6 % (44-76 ) Not Available [facility] (Centralized Electronic Ordering - All Locations) Patient Can Go To The Location Of Their Choice, 09/02/2014 14:59:09 09/02/20 14 09/02/2014 CBC w/ auto diff lymph 36.9 % (15-43 ) Not Available [facility] (Centralized Electronic Ordering - All Locations) Patient Can Go To The Location Of Their Choice, 09/02/2014 14:59:09 09/02/20 14 09/02/2014 CBC w/ auto diff monocyte 10.2 % (4.5-1 0.5) Not Available [facility] (Centralized Electronic Ordering - All Locations) Patient Can Go To The Location Of Their Choice, 09/02/2014 14:59:09 09/02/20 14 09/02/2014 CBC w/ auto diff eo 1.7 % (0-6) Not Available [facility] (Centralized Electronic Ordering - All Locations) Patient Can Go To The Location Of Their Choice, 09/02/2014 14:59:09 09/02/20 14 09/02/2014 CBC w/ auto diff baso 0.4 % (0-2) Not Available [facility] (Centralized Electronic Ordering - All Locations) Patient Can Go To The Location Of Their Choice, 09/02/2014 14:59:09 09/02/20 14 09/02/2014 CBC w/ auto diff imm gran 0.2 % (0.0-0 .6) Not Available [facility] (Centralized Electronic Ordering - All Locations) Patient Can Go To The Location Of Their Choice, 09/02/2014 14:59:09 09/02/20 14 09/02/2014 BMP, serum or plasm a glucose 79 mg/dL (70-99 ) Not Available [facility] (Centralized Electronic Ordering - All Locations) Patient Can Go To The Location Of Their Choice, 09/02/2014 15:49:07 09/02/20 14 09/02/2014 BMP, serum or plasm a BUN 13 mg/dL (6-20) Not Available [facility] (Centralized Electronic Ordering - All Locations) Patient Can Go To The Location Of Their Choice, 09/02/2014 15:49:07 09/02/20 14 09/02/2014 BMP, serum or plasm a creatinine 0.8 mg/dL (0.5-1 .0) Not Available [facility] (Centralized Electronic Ordering - All Locations) Patient Can Go To The Location Of Their Choice, 09/02/2014 15:49:07 09/02/20 14 09/02/2014 BMP, serum or plasm a sodium 143 mmol/ L (133-1 45) Not Available [facility] (Centralized Electronic Ordering - All Locations) Patient Can Go To The Location Of Their Choice, 09/02/2014 15:49:07 09/02/20 14 09/02/2014 BMP, serum or plasm a potassium 4.7 mmol/ L (3.6-5 .2) Not Available [facility] (Centralized Electronic Ordering - All Locations) Patient Can Go To The Location Of Their Choice, 09/02/2014 15:49:07 09/02/20 14 09/02/2014 BMP, serum or plasm a chloride 106 mmol/ L (98-10 7) Not Available [facility] (Centralized Electronic Ordering - All Locations) Patient Can Go To The Location Of Their Choice, 09/02/2014 15:49:07 09/02/20 14 09/02/2014 BMP, serum or plasm a bicarbonate 28 mmol/ L (22-29 ) Not Available [facility] (Centralized Electronic Ordering - All Locations) Patient Can Go To The Location Of Their Choice, 09/02/2014 15:49:07 09/02/20 14 09/02/2014 BMP, serum or plasm a anion gap 9 (4-17) Not Available [facility] (Centralized Electronic Ordering - All Locations) Patient Can Go To The Location Of Their Choice, 09/02/2014 15:49:07 09/02/20 14 09/02/2014 BMP, serum or plasm a calcium 9.9 mg/dL (8.6-1 0.5) Not Available [facility] (Centralized Electronic Ordering - All Locations) Patient Can Go To The Location Of Their Choice, 09/02/2014 15:49:07 09/02/20 14 09/02/2014 BMP, serum or plasm a est GFR non >60 mL/mi n/1.7 3_M2 THE MDRD STUDY 'S ESTIM ATED GFR EQUAT ION HAS NOT BEEN VALID ATED IN CHILD YUKO (<18 YRS), PREGN ANT WOMEN , THE ELDER LY (AGE >70 YRS), RACIA L OR ETHNI C SUBGR OUPS OTHER THAN CAUCA SIANS AND AFRIC AN AMERI CANS. Not Available [facility] (Centralized Electronic Ordering - All Locations) Patient Can Go To The Location Of Their Choice, [id number] 09/02/2014 15:49:07 09/02/20 14 09/02/2014 BMP, serum or plasm a est GFR >60 mL/mi n/1.7 3_M2 THE MDRD STUDY 'S ESTIM ATED GFR EQUAT ION HAS NOT BEEN VALID ATED IN CHILD YUKO (<18 YRS), PREGN ANT WOMEN , THE ELDER LY (AGE >70 YRS), RACIA L OR ETHNI C SUBGR OUPS OTHER THAN CAUCA SIANS AND AFRIC AN AMERI CANS. Not Available [facility] (Centralized Electronic Ordering - All Locations) Patient Can Go To The Location Of Their Choice, [id number] 09/02/2014 15:49:07 09/02/20 14 09/02/2014 TSH, serum or plasm a TSH 1.33 mIU/m L (0.40- 4.00) Not Available [facility] (Centralized Electronic Ordering - All Locations) Patient Can Go To The Location Of Their Choice, [id number] 09/02/2014 15:53:07 Result Notes None recorded. Problems Name Problem SNOMED Code Status Onset Date Resolution Date Notes Provider Name and Address Organization Details Recorded Time Acute upper respirat ory infectio n [id number] Completed 201204/26/2014 IMPRESSI ON: PT WITH MILD UR SXS AND SINUS PAIN X 5 DAYS. ADVISED PT THAT BASED ON DURATION , STILL MOST LIKELY A VIRAL PROCESS. ADVISED RE REST, FLUIDS, NASAL IRRIGATI ON, HUMIDIFI ED AIR AND OTC ANALGESI CS. TO CONTACT OFFICE FOR WORSENIN G SXS OR IF OTHER CONCERNS ARISE.; RECORDED 05/14/20 13 11:44AM BY GLORIA CAMARENA MA, ANNOTATI ON/ADDEN DUM Not Available [facility] 4 14:52:39 Adult health examinat ion Completed 201204/26/2014 RECORDED 05/14/20 13 11:45AM BY GLORIA CAMARENA MA, ANNOTATI ON/ADDEN DUM Not Available [facility] 4 14:52:39 Asthma 855265524 Active Eduardo Guevara, [facility] [address] [facility] [address] [place], [address] , [facility] 5 20:39:46 Malaise and fatigue 106422389 Completed 201204/26/2014 RECORDED 05/14/20 13 11:44AM BY GLORIA CAMARENA MA, ANNOTATI ON/ADDEN DUM Not Available [facility] 4 14:52:39 Hemorrho ids 81968944 Active Eduardo Guevara, [facility] [address] [facility] [address], [place], [address] , [facility] 5 20:39:46 Hyperlip idemia 44427491 Active Eduardo Guevara, [facility] [address] [facility] [address], [place], [address] , [facility] 5 20:39:46 Influenz a vaccine needed [id number] 06 Completed 200904/26/2014 RECORDED 10/02/20 10 1:36PM BY GLORIA CAMARENA MA, OFFICE VISIT Not Available [facility] 4 14:52:39 Acute upper respirat ory infectio n 14267997 Completed 201205/19/2014 IMPRESSI ON: PT WITH MILD UR SXS AND SINUS PAIN X 5 DAYS. ADVISED PT THAT BASED ON DURATION , STILL MOST LIKELY A VIRAL PROCESS. ADVISED RE REST, FLUIDS, NASAL IRRIGATI ON, HUMIDIFI ED AIR AND OTC ANALGESI CS. TO CONTACT OFFICE FOR WORSENIN G SXS OR IF OTHER CONCERNS ARISE.; RECORDED 05/14/20 13 11:44AM BY GLORIA CAMARENA MA, ANNOTATI ON/ADDEN DUM Not Available [facility] 4 13:02:53 Adult health examinat ion Completed 201205/19/2014 RECORDED 05/14/20 13 11:45AM BY GLORIA CAMARENA MA, ANNOTATI ON/ADDEN DUM Not Available [facility] 4 13:02:54 Malaise and fatigue 387604409 Completed 201205/19/2014 RECORDED 05/14/20 13 11:44AM BY GLORIA CAMARENA MA, ANNOTATI ON/ADDEN DUM Not Available [facility] 4 13:02:54 Influenz a vaccine needed [id number] 06 Completed 200905/19/2014 RECORDED 10/02/20 10 1:36PM BY GLORIA CAMARENA MA, OFFICE VISIT Not Available [facility] 4 13:02:54 Acute upper respirat ory infectio n 64389121 Completed 201205/20/2014 IMPRESSI ON: PT WITH MILD UR SXS AND SINUS PAIN X 5 DAYS. ADVISED PT THAT BASED ON DURATION , STILL MOST LIKELY A VIRAL PROCESS. ADVISED RE REST, FLUIDS, NASAL IRRIGATI ON, HUMIDIFI ED AIR AND OTC ANALGESI CS. TO CONTACT OFFICE FOR WORSENIN G SXS OR IF OTHER CONCERNS ARISE.; RECORDED 05/14/20 13 11:44AM BY GLORIA CAMARENA MA, ANNOTATI ON/ADDEN DUM Not Available [facility] 4 03:51:39 Adult health examinat ion Completed 201205/20/2014 RECORDED 05/14/20 13 11:45AM BY GLORIA CAMARENA MA, ANNOTATI ON/ADDEN DUM Not Available [facility] 4 03:51:39 Malaise and fatigue 089350085 Completed 201205/20/2014 RECORDED 05/14/20 13 11:44AM BY GLORIA CAMARENA MA, ANNOTATI ON/ADDEN DUM Not Available [facility] 4 03:51:39 Influenz a vaccine needed [id number] 06 Completed 200905/20/2014 RECORDED 10/02/20 10 1:36PM BY GLORIA CAMARENA MA, OFFICE VISIT Not Available [facility] 4 03:51:39 Migraine with aura 7121117 Active Will aMlin MD [address] [facility] [address], [place], [address] , [facility] 5 11:28:10 Fatigue 03735830 Active Will Malin MD [address] [facility] [address], [place], [address] , [facility] 4 10:55:12 Headache 63013912 Active Will Malin MD [address] [facility] [address], [place], [address] , [facility] 5 11:28:10 Inflamma tion of sacroili ac joint 28163534 Completed 11/05/2019 Will Malin MD [address] [facility] [address], [place], [address] , [facility] 0 12:02:56 Problem Notes None recorded. Procedures Surgical History Date Name Laterality Status Provider Name and Address Organization Details Recorded Time 09/20/2019 Date of Last Pap Smear completed Olga Raya [facility] 11/15/2019 11:43:15 No surg proc w/in 30 days completed Gloria monterroso MA [facility] 05/29/2017 10:40:30 Imaging Results None recorded. Procedure Notes None recorded. Medical Equipment None Reported. Allergies No known drug allergies Medications Name Sig Start Date Stop Date Status Note LastModified by Organization Details LastModified Time multivita min tablet Take 1 tablet every day by oral route. active Not Available Not Available No t Available cyclobenz aprine 10 mg tablet 05/29 completed Not Available Not Available Not Available ibuprofen 800 mg tablet 05/29 completed Not Available Not Available Not Available sumatript an 100 mg tablet Take one ELLE for migraine . May repeat X 1 if needed after 2 hours. 11/07 completed Not Available Not Available Not Available Anucort-H C 25 mg supposito ry 2 TIMES PER DAY FOR 2 WEEKS 2012 active RECORDED 05/14/20 13 12:25PM BY WILL MALIN MD, OFFICE VISIT; Not Available Not Available Not Available hermilafranchescasmiley tk (contrace ptive) 0.35 mg tablet Take 1 tablet every day by oral route. 11/01 completed Not Available Not Available Not Available magnesium 200 mg tablet Take 1 tablet every day by oral route at bedtime. active Not Available Not Available No t Available NuvaRing 0.12 mg-0.015 mg/24 hr vaginal MONTHLY 05/14 completed RECORDED 05/14/20 13 11:48AM BY GLORIA CAMARENA MA, OFFICE VISIT;DR MAG BROWN Not Available Not Available Not Available Citrucel (sucrose) DAILY 2012 active RECORDED 05/14/20 13 12:24PM BY WILL MALIN MD, OFFICE VISIT; Not Available Not Available Not Available Excedrin Migraine Take 2 as needed for migraine active Not Available Not Available No t Available multivita min 1 PO DAILY 05/29 completed Not Available Not Available Not Available Orsythia 0.1 mg-20 mcg tablet DAILY active Not Available Not Available Not Available Vitals Date Recorded Oxygen saturation Oxygen saturation in Arterial blood by Pulse oximetry Heart rate Body temperature Body weight Body mass index (BMI) Body height Systolic blood pressure Diastolic blood pressure Provider Name and Address Organization Details Last Updated DateTime 7 97 % 97 % 82 /min 97.9 [degF] 59683.4 g 27.8 kg/m2 172.72 cm 106 mm[Hg] 68 mm[Hg] Gloria stringer MA [facility] 7 10:43:53 Date Recorded Oxygen saturation Oxygen saturation in Arterial blood by Pulse oximetry Heart rate Body temperature Body height Body mass index (BMI) Body weight Systolic blood pressure Diastolic blood pressure Provider Name and Address Organization Details Last Updated DateTime 0 98 % 98 % 60 /min 97.6 [degF] 172.72 cm 28 kg/m2 63456.4 3 g 112 mm[Hg] 74 mm[Hg] Gloria stringer MA [facility] [place] 0 11:21:29 Date Recorded Body temperature Heart rate Oxygen saturation Oxygen saturation in Arterial blood by Pulse oximetry Body height Body weight Body mass index (BMI) Systolic blood pressure Diastolic blood pressure Provider Name and Address Organization Details Last Updated DateTime 4 98.2 [degF] 74 /min 98 % 98 % 172.72 cm 12612.0 86467 g 27 kg/m2 112 mm[Hg] 80 mm[Hg] Gloria stringer MA [facility] 4 10:20:59 Date Recorded Body height Oxygen saturation Oxygen saturation in Arterial blood by Pulse oximetry Body temperature Heart rate Body weight Body mass index (BMI) Systolic blood pressure Diastolic blood pressure Provider Name and Address Organization Details Last Updated DateTime 5 172.72 cm 97 % 97 % 97.9 [degF] 75 /min 21149.6 266 g 27.4 kg/m2 108 mm[Hg] 62 mm[Hg] Gloria stringer MA [facility] 5 10:54:46 Date Recorded Oxygen saturation Oxygen saturation in Arterial blood by Pulse oximetry Body height Body temperature Heart rate Body mass index (BMI) Body weight Systolic blood pressure Diastolic blood pressure Provider Name and Address Organization Details Last Updated DateTime 6 98 % 98 % 172.72 cm 97.9 [degF] 82 /min 27.8 kg/m2 11491.4 0371 g 102 mm[Hg] 68 mm[Hg] Gloria stringer MA [facility] 6 10:02:04 Social History Question Answer Notes LastModified by Organizat ion Details LastModified Time Tobacco Smoking Status [facility] 10:11:11 Do You Have An Advance Directive? Yes HCP Information not available 05/29/2017 Is Blood Transfusion Acceptable In An Emergency? Yes Information not available 11/21/2015 What Is Your Level Of Caffeine Consumption? Moderate 1 Cup Of Coffee Daily Information not available 09/02/2014 How Much Tobacco Do You Chew? None Information not available 11/21/2015 What Type Of Diet Are You Following? REGULAR Information not available 09/02/2014 Which Illicit Or Recreational Drugs Have You Used? None Information not available 11/21/2015 Live Alone Or With Others? With Others (Alhaji) And Step-son Information not available 09/02/2014 Do You Take Precautions To Prevent Distracted Driving? Yes Information not available 11/21/2015 How Often Do You Need To Have Someone Help You When You Read Instructions, Pamphlets, Or Other Written Material From Your Doctor Or Pharmacy? Never Information not available 11/21/2015 Have You Served In The ? No Information not available 05/29/2017 What Was The Date Of Your Most Recent Tobacco Screening? 11/05/2019 Information not available 11/05/2019 How Many Children Do You Have? 0 Information not available 09/02/2014 Do You Use Protection During Sex? No Information not available 11/21/2015 Seat Belts Used Routinely Yes Information not available 11/21/2015 Are You Sexually Active? Yes Information not available 11/21/2015 Smoke Alarm In Home Yes Information not available 09/02/2014 At What Age Did You Start Smoking Tobacco? 0 Information not available 11/21/2015 Are You Passively Exposed To Smoke? No Information not available 11/21/2015 How Much Tobacco Do You Smoke? No Information not available 09/02/2014 Do You Use Sunscreen Routinely? Yes Information not available 11/21/2015 How Many Years Have You Smoked Tobacco? 0 Information not available 11/21/2015 Sex: Unknown Functional Status Question Answer Note LastModified by Organizat ion Details LastModified Time What is your level of alcohol consumption? Moderate 3 x week Information not available 09/02/2014 Do you or have you ever used smokeless tobacco? Never used smokeless tobacco Information not available 11/05/2019 Are you currently employed? Yes full-time Information not available 09/02/2014 Are you able to care for yourself? 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 Never used electronic cigarettes Information not available 11/05/2019 What is your exercise level? Moderate 4x week, Cross Fit Information not available 09/02/2014 Mental Status None recorded. Family History Relationship Description Onset Age of this Age Resolved Age Notes LastModified by Organization Details LastModified Time Father Hypercholest celyia bsolivanmatto s Not available 09/02/2014 10:12:35 Paternal Aunt Malignant neoplasm of female breast 40 [email or web address] s Not available 11/05/2019 11:19:21 Paternal Aunt Diabetes mellitus bsolivanmatto s Not available 11/05/2019 11:19:22 Unspecified Relation Diabetes mellitus patern al great aunt bsolivanmatto s Not available 11/05/2019 11:19:22 Mother Malignant neoplasm of female breast 65 bsolivanmatto s Not available 11/05/2019 11:19:22 Paternal Grandmother Malignant tumor of colon bsolivanmatto s Not available 11/05/2019 11:19:22 Medical History Condition Response Other N Gout N Blood Diseases N Kidney Stones N Hyperthyroidism N Breast Cancer N Hypothyroidism N Lung Disease N Depression N COPD N Defects or Inherited Disease N Anesthesia Complications N Headaches/Migraines N Varicose Veins N Anxiety Disorder N Obesity N Vision or Eye Problems N Arthritis N Head Injury/Concussion N Infertility N Polyps N Congenital Anomalies N Acid Reflux (GERD) N Cancer N Stroke N ADHD N Endometriosis N High Cholesterol N Liver Disease N Fibromyalgia N Kidney Disease N Heart Problems N Ear or Hearing Problems N Hospitalizations N Thyroid Problems N GI Problems N Acne N Eating Disorder N Skin Problems N Anemia N Constipation N Bladder Problems N Mental Illness N Diabetes N Ovarian Cancer N Blood Transfusions N Seizures/Epilepsy N Tuberculosis N AIDS/HIV N Congestive Heart Failure (CHF) N Eczema N Abuse/Domestic Violence N Diverticulitis N Asthma N Allergies N Reflux/GERD N Hepatitis N Pulmonary Embolism N Hypertension N Chicken Pox N Autism Spectrum Disorder (ASD) N Osteoporosis N Gynecological History Statement/Question Response Date of Last Pap Smear 09/20/2019 Obstetrics History GPAL:G 0 P 0 0 0 0 Immunizations Vaccine Type Date Status Note Provider Nam e and Address Organization Details Recorded Time Td (adult) 2 completed ALVERTO Frank, [facility] 11/05/2019 11:23:07 Influenza, split virus, quadrivalent , PF 7 cancelled patient objection Not Available [facility] 10/30/2019 02:22:07 Tdap 9 completed Not Available [facility] 04/26/2014 13:40:43 Past Encounters Encounter ID Performer Location Encounter Start Date Encounter Closed Date Diagnosis/Indication Diagnosis SNOMED-CT Code Diagnosis ICD10 Code Diagnosis Note [id number] auto[facility]Comm erce [address] [facility], [address] [place] [address] 10/02/2010 00:00:00 [id number] [facility] [address] [facility] [address] [place] [address] 10/15/2010 00:00:00 [id number] autoEComm erce [address] [facility] [place] [address] 05/14/2013 00:00:00 [id number] Will Malin MD Main Office [address] [facility] [address] [place] [address] 09/02/2014 10:03:43 09/02/2014 10:56:39 Migraine with aura 7324954 Fatigue 61393852 [id number] Will Malin MD Main Office [address] [facility] [address] [place] [address] 11/07/2014 10:36:59 11/07/2014 11:30:47 Migraine with aura 4149419 Headache 49207539 [id number] Will Malin MD Main Office [address] [facility] [address] [place] [address] 11/21/2015 09:46:55 11/21/2015 10:43:21 Inflammation of sacroiliac joint 35114468 M46.1 [id number] Will Malin MD Main Office [address] [facility] [address] [place] [address] 05/29/2017 10:24:22 05/29/2017 11:30:49 Adult health examination 227795453 Z00.00 Immunization refused 275 258873 Z28.21 Family his tory of breast cancer 600394198 Z80.3 Migraine 57930318 G43.90 9 Hyperlipidemia 56633798 E78.5 Fatigue 88952559 R53.83 Body mass index 25-29 - overweight 405667723 E66.3 Z68.25 [id number] Will Malin MD Main Office [address] [facility] [address] [place] [address] 11/05/2019 10:40:49 11/05/2019 12:10:24 Adult health examination 069368926 Z00.00 Hyperlipidemia 92393248 E78.5 Fatigue 35363679 R53.83 Migraine with aura 61834 06 G43.109 Health Concerns Section Related Observation LastModified by Organization Detai ls LastModified Time None Recorded Concern Status LastModified by Organization Details LastModified Time None Recorded Advance Directives Directive Y: HCP Payers Encounter Date Sequence Insurance Name Policy Number Policy Bess Covered Member ID Bess Member ID Guarantor Name 09/02/2014 1 [facility] [id number] Sariah Moura [id number] Sariah Moura 11/07/2014 1 [facility] [id number] Sariah Moura [id number] 1 Sariah Moura 11/21/2015 1 [facility] [id number] Sariah Moura [id number] 1 Sariah Moura 05/29/2017 1 [facility] [id number] Sariah Moura [id number] 1 Sariah Moura 11/05/2019 1 [facility] [id number] Sariah Moura [id number] Sariah Moura Notes Date Note Type Note Provider Name and Address Organization Details Recorded Time 09/02/2014 text/html Notes no prior h istory of migraine. Now with intermittent migraine (approx 5 episopes of headache preceded by visual aura). Will Malin MD [address], [address], [facility] [place] 09/02/2014 10:55:23 11/21/2015 text/html Back PainReporte d bypatient.Location:deb n is not radiating Severity:improving Associated Symptoms:no fever; no weak limbs; no numbness of the legs/feet; no tinglingNotes:Notes injury falling when she was running approx 2 weeks ago. had reinjury of complex back problem (seen at [facility] for L3 spinal stress fracture in the past). Has been taking NSAID and muscle relaxer given at urgent care. Pain is not disturbing sleep. Not missing work. Worried about reinjury at this point. Has been avoiding any exercise for strength training - doing crossfit generally. Will Malin MD [address], [address], [facility] [place] 11/21/2015 13:08:31 05/29/2017 text/html Back PainReporte d bypatient.Notes:Notes ongoing symptoms of low back pain which have been intermittently treated with animal care supervisor. Much better control of back pain with current treatment. .HeadacheReported bypatient.Notes:Stable headaches with decreased migraine frequency. Here for PE visit. Reviewed chronic medications and medical problems. Discussed screening guidelines as well as goals for fitness and weight management. Will Malin MD [address], [address], [facility] [place] 05/29/2017 13:01:06 11/05/2019 text/html HeadacheReported bypatient.Notes:Stable headaches with decreased migraine frequency. Notes less than one per month. Still has visual aura. Using Excedrin migraine as needed for abortive treatment. Here for PE visit. Reviewed chronic medications and medical problems. Discussed screening guidelines as well as goals for fitness and weight management. iWll Malin MD [address], [address], [place] - [facility] 11/05/2019 12:08:59 OBGyn Episode No OBEpisode recorded.
--- OUTSIDE RECORDS SUMMARY | 2025-03-01 10:13 | XMS_ITS | Data Portability ---
Author Organization [facility] [address] Address [address] [place] [address] Assessment No assessment recorded. Plan of Treatment Reminders Order Date Submit Date Provider Last Modified By Organization Details Last Modified Time Details Appointments None recorded. Lab None recorded. Referral None recorded. Procedures None recorded. Surgeries None recorded. Imaging None recorded. Medication Orders polymyxin B sulfate 10,000 unit-trime thoprim 1 mg/mL eye drops 2023 024 [facility][id number], [address] [place], [address], 4 17:21:34 Patient TargetsNo targets recorded. Patient InstructionsNo instructions recorded. Reason for Referral None Reported. Problems Name Problem SNOMED Code Status Onset Date Resolution Date Notes Provider Name and Address Organization Details Recorded Time Acute conjunctivi tis of bilateral eyes 6836509462766 04 Active 2023 Sascha Rosales, LO[facility] DOFFER [address] [place], [place], [address] [facility] 4 17:21:09 Problem Notes None recorded. Medical Equipment None Reported. Allergies Allergen ID Allergen Name Allergen Category Reaction Reaction Severity Criticality Documentation Date Start Date Code Code System Note Provider Name and Address Organization Details Recorded Time 609783 sumatript an medicatio n headache severe Not available 02/19/2024 40386 [facility]Norm JULI Courtney [facility] 4 17:10:04 Medications Name Sig Start Date Stop Date Status Note LastModified by Organization Details LastModified Time polymyxin B sulfate 10,000 unit-trimet hoprim 1 mg/mL eye drops INSTILL 1 DROP INTO AFFECTED EYE(S) BY OPHTHALMIC ROUTE EVERY 6 HOURS x 7 days. 2023 active Not Available Not Available Not Avai lable Vitals Date Recorded Body height Body mass index (BMI) Body weight Oxygen saturation Oxygen saturation in Arterial blood by Pulse oximetry Heart rate Body temperature Systolic blood pressure Diastolic blood pressure Provider Name and Address Organization Details Last Updated DateTime 172.72 cm 31.6 kg/m2 86503.2 1 g 97 % 97 % 77 /min 98.3 [degF] 120 mm[Hg] 86 mm[Hg] Nery Glass PA [facility] 17:08:21 Social History Question Answer Notes LastModified by [employer] Details LastModified Time Tobacco Smoking Status Never Smoker Nery schneider PA [facility] 02/19/2024 17:11:06 Have You Had A Flu Shot This Season? No Information not available 02/19/2024 If No, Would You Like A Flu Shot Today? No Information not available 02/19/2024 Have You Had Direct Contact, Or Contact During Intimacy, With Monkeypox Rash, Scabs, Or Body Fluids From A Person With Monkeypox? No Information not available 02/19/2024 What Is Your Relationship Status? Information not available 02/19/2024 Have You Recently Traveled Abroad? No Information not available 02/19/2024 Sex: Unknown Functional Status Question Answer Note LastModified by [employer] Details LastModified Time Do you use any illicit or recreational drugs? No Information not available 02/19/2024 What is your level of alcohol consumption? Occasional Information not available 02/19/2024 Are you currently employed? Yes Information not available 02/19/2024 Mental Status None recorded. Family History Nothing Reported. Medical History No medical history recorded. Gynecological History Statement/Question Response Date of LMP 02/09/2024 Is there any chance of ? No Obstetrics History GPAL:G 0 P 0 0 0 0 Past Encounters Encounter ID Performer Location Encounter Start Date Encounter Closed Date Diagnosis/Indication Diagnosis SNOMED-CT Code Diagnosis ICD10 Code Diagnosis Note [id number] [facility] [address] [place] [address] 11/12/2015 08:24:33 11/12/2015 09:31:12 [id number] [facility] [address] [place] [address] 10/15/2017 08:39:46 10/15/2017 09:35:38 [id number] [facility] [address] [place] [address] 04/19/2018 09:53:53 04/19/2018 10:29:58 [id number] [facility] [address] [place] [address] 04/10/2021 09:20:52 04/10/2021 11:07:42 [id number] [facility] [address] [place] [address] 12/03/2020 11:26:11 12/03/2020 12:09:30 [id number] Sascha Roasles, [facility] [address] [facility] [address] [place] [address] 02/19/2024 17:00:29 02/19/2024 17:26:37 Acute conjunctivitis of bilateral eyes 0084320595 54602 H10.33 Based on your presentati on and exam, you are going diagnosed with Conjunctiv itis. I am going to cover you for a bacterial infection in the eye with antibiotic eye drops. Sometimes these symptoms can be caused by a virus or allergies. Viral infections with spontaneou sly resolve after 7-10 days and do not require treatment. If it is an allergy cause sometime oral allergy medication s will help with these symptoms or a allergy eye drop that can be purchased OTC. The following are my recommenda tions to help with your symptoms and this diagnosis: 1. Do not rub your eyes this can cause it to spread or damage the cornea of your eye.2. Wash surfaces such as cell phones, remotes, door knob frequently , because this is how it is transmitte d to others.3. Do not wear contacts for at least 1 week if you have contacts.4 . No makeup5. You can take Ibuprofen or Tylenol for discomfort if you are not allergic to them.6. If you get lubricatin g eye drops and put them in the refrigerat or - this can help with itching and discomfort . You should be seen again if you develop any of the following symptoms1. Eye pain or pressure behind the eye.2. Redness or significan t swelling of the eyelid or around the eye3. Headache4. Fever > 100.55. No improvemen t in current symptoms in the next 1 week. Thank you for using [facility] today, please feel free to contact us with any questions or concerns. Health Concerns Section Related Observation LastModified by Organization Detai ls LastModified Time None Recorded Concern Status LastModified by Organization Details LastModified Time None Recorded Advance Directives Directive None Recorded Payers Insurance Date Sequence Insurance Name Policy Number Policy Bess Covered Member ID Bess Member ID Guarantor Name 02/19/2024 1 [facility] [id number] Sariah Moura [id number] Sariah Moura Notes Date Note Type Note Provider Name and Address Organization Details Recorded Time 4 text/html Eye problemsReported bypatient.source of patient informationInformation obtained from patient; Patient arrived at Urgent Care ambulatory; learning styles: auditory Location:bilateral Eye Symptoms:no pain in the eyes; no blurred vision;sensitivity to light;redness;discharge Severity:mild Onset/Timindays Context:other exposure Modifying Factors:nothing gives relief neelam Aggravating factors:bright light makes it worse neelam Alleviating factors:nothing helps Sascha Rosaels NP [address] [place], [address], [place] - [facility] 02/19/2024 18:11:38 OBGyn Episode No OBEpisode recorded.
== END 2025-03-01 10:42 | disposition home or self-care (01) ==
LOC: HO.HSMS 09:24
PROVIDERS: PCP Hospitalist; Visit Provider Nurse Practitioner Family
DX: G43.009 Migraine without aura, not intractable, without status migrainosus (principal); G43.109 Migraine with aura, not intractable, without status migrainosus; G24.5 Blepharospasm
CPT/HCPCS: 99214

== ENCOUNTER → 2025-03-01 09:24 | Outpatient (BNVA) | payer OTHER, SELFPAY | PROVIDERS: PCP Hospitalist; Visit Provider Nurse Practitioner Family | DX: G43.009 Migraine without aura, not intractable, without status migrainosus (principal); G43.109 Migraine with aura, not intractable, without status migrainosus; G24.5 Blepharospasm | CPT/HCPCS: 99212 ==